=== PATIENT | female | born 1950 | race Caucasian/White ===

== ENCOUNTER → 2023-12-15 15:26 | Outpatient (REF) | payer MEDICARE, SELFPAY | LOC: RAD 15:26 | PROVIDERS: ATTENDING PHYSICIAN Internal Medicine Endocrinology, Diabetes & Metabolism; FAMILY PHYSICIAN Physician Assistant Medical | DX: E04.2 Nontoxic multinodular goiter (principal) | CPT/HCPCS: 76536 ==

== ENCOUNTER → 2024-11-10 09:05 | Outpatient (REF) | payer MEDICARE, SELFPAY | LOC: RST 09:05 | PROVIDERS: ATTENDING PHYSICIAN Internal Medicine Gastroenterology; FAMILY PHYSICIAN Physician Assistant Medical | DX: R05.3 Chronic cough (principal); R13.10 Dysphagia, unspecified | CPT/HCPCS: 74221; 74230; 92611 ==

== ENCOUNTER → 2025-05-11 13:19 | Outpatient (REF) | payer MEDICARE, SELFPAY | LOC: WDC 13:19 | PROVIDERS: ATTENDING PHYSICIAN Physician Assistant Medical; REFERRING PHYSICIAN Physical Medicine & Rehabilitation | DX: Z12.31 Encounter for screening mammogram for malignant neoplasm of breast (principal); Z78.0 Asymptomatic menopausal state; R05.3 Chronic cough; I10 Essential (primary) hypertension; E78.2 Mixed hyperlipidemia | CPT/HCPCS: 75571; 77063; 77067; 77080 ==

== ENCOUNTER → 2025-07-11 16:17 | Outpatient (REF) | payer MEDICARE, SELFPAY | LOC: RAD 16:17 | PROVIDERS: ATTENDING PHYSICIAN Internal Medicine Critical Care Medicine; FAMILY PHYSICIAN Physician Assistant Medical | DX: Q34.1 Congenital cyst of mediastinum (principal) | CPT/HCPCS: 71260; Q9967 ==